=== PATIENT | male | born 1960 | race Caucasian/White ===

== ENCOUNTER 2017-11-18 12:26 | Outpatient (CLI) | payer BC ==
--- NOTE | 2017-11-18 13:56 | RAD ---
8 VIEWS CERVICAL SPINE: Date: 11/18/17 INDICATION: Spondylosis. COMPARISON: None. 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 There is an ACDF spanning C5 through T1 with a large fibular strut graft spanning the inferior aspect of C5 to the sharp perior aspect of T1. ACDF projects in the expected position. Neural foramina appear patent. Lateral m asses are symmetric. Lung apices are clear. There is mild disc degenerative disease at C3-4 and C4-5. Prevertebral soft tissues appear within normal limits. No definite abnormal translational motion is noted. IMPRESSION: 1. Postop cervical spine. No abnormal translational motion demonstrates. 2. Prominent degenerative change at the anterior C1 and C2 articulation. POS: [facility]
== END 2017-11-18 12:27 | disposition home or self-care (01) ==
LOC: RAD 12:26
PROVIDERS: ATTEND Anesthesiology Pain Medicine
DX: M47.892 Other spondylosis, cervical region (principal); Z98.890 Other specified postprocedural states
CPT/HCPCS: 72052

== ENCOUNTER 2018-06-25 08:29 | Outpatient (CLI) | payer BC ==
--- NOTE | 2018-06-25 10:01 | MRI ---
[facility] lumbar spine noncontrast: HISTORY: Lumbar radicular pain COMPARISON: 12/21/2010 FINDINGS: Appropriate T1 marrow signal intensity of the lumbar vertebra. Lumbar spine vertebral body height is maintained. No fracture. No significant STIR hyperintensity to suggest vertebral body edema or ligame ntous injury No paraspinal masses. Symmetric signal intensity of the paraspinal musculature. Left parapelvic cysts . Symmetric enhancement kidneys Conus medullaris terminates at the inferior aspect of L1 T12-L1:Adequate disc hydration. No significant central canal stenosis or neural foraminal narrowing L1-2:Adequate disc hydration. No significant central canal stenosis or neural foraminal narrowing L2-3:Adequate disc hydration. No significant central canal stenosis or foraminal narrowing L3-4:Adequate disc hydration. No significant central canal stenosis or foraminal narrowing L4-5:Adequate disc hydration. No significant spinal canal stenosis or foraminal narrowing L5-S1:Adequate disc hydration. No significant central canal stenosis or foraminal narrowing IMPRESSION: Limited evaluation due to motion degradation. Nevertheless, no significant central canal stenosis or neural foraminal narrowing
== END 2018-06-25 08:30 | disposition home or self-care (01) ==
LOC: BICMRI 08:29
PROVIDERS: ATTEND Nurse Practitioner Family
DX: M54.16 Radiculopathy, lumbar region (principal)
CPT/HCPCS: 72148

== ENCOUNTER 2020-06-15 20:06 | Observation (INO) | payer BC ==
[2020-06-15 21:23] LABS: #Basophils 0.1 thou/uL (0.0-0.2); #Eosinphils 0.4 thou/uL (0.0-0.7); #Lymphocytes 2.8 thou/uL (1.20-3.40); #Monocytes 1.5 thou/uL (0.11-0.59); #Neutrophils 6.7 thou/uL (1.40-6.50); %Basophils 0.9 % (0.0-1.0); %Eosinophils 3.8 % (0.0-10.0); %Lymphocytes 24.2 % (21.0-51.0); %Monocytes 12.8 % (0.0-10.0); %Neutrophils 58.3 % (42.0-75.0); Hemoglobin 13.5 g/dL (14.0-18.0); Mean Corpuscular HGB CONC 32.5 g/dL (32.0-36.0); Mean Corpuscular Hemoglobin 30.6 pg (27.0-31.0); Mean Platelet Volume 8.1 fL (7.4-10.4); Platelet Count 330 thou/uL (130-400); RBC Distribution Width 12.6 % (11.5-14.5); Red Blood Cell (RBC) Count 4.43 mill/uL (4.70-6.10); White Blood Cell (WBC) Count 11.5 thou/uL (4.8-10.8)
[2020-06-15 21:45] LABS: ALT (SGPT) 15 U/L (8-55); AST (SGOT) 16 U/L (5-34); Albumin 4.2 g/dL (3.5-5.0); Alkaline Phosphatase 55 U/L (40-110); Anion Gap 13 mmol/L (10-20); BUN (Urea Nitrogen) 13 mg/dL (8.4-25.7); Bilirubin, Total 0.3 mg/dL (0.2-1.2); Calc. Creatinine Clearance 0 mL/min (70-130); Calcium 8.7 mg/dL (7.8-10.44); Carbon Dioxide 25 mmol/L (22-29); Chloride 105 mmol/L (98-107); Glucose 129 mg/dL (70-105); Potassium 4.1 mmol/L (3.5-5.1); Protein, Total 7.2 g/dL (6.0-8.3); Sodium 139 mmol/L (136-145)
[2020-06-15] MEDS ORDERED: Nitroglycerin 2% Ointment 1 INCH/1 GM Packet ONE (22:09)
[2020-06-15] MEDS ORDERED: Aspirin Chewable 81 MG TAB ONE (22:09)
[2020-06-15] MEDS ORDERED: Morphine 4 MG/ML VIAL ONE (22:59)
[2020-06-16] MEDS ORDERED: Acetaminophen 325 MG TAB PO PRN (00:34)
[2020-06-16] MEDS ORDERED: Ondansetron PF 4 MG/2 ML Vial IVP PRN (00:34)
[2020-06-16] MEDS ORDERED: Morphine 4 MG/ML VIAL SLOW IVP PRN (00:40)
[2020-06-16 01:24] VITALS: BMI 30.7
[2020-06-16 01:41] LABS: Troponin I Less than 0.010 ng/mL (< 0.028)
[2020-06-16 05:17] LABS: #Basophils 0.1 thou/uL (0.0-0.2); #Eosinphils 0.5 thou/uL (0.0-0.7); #Lymphocytes 2.9 thou/uL (1.20-3.40); #Monocytes 1.4 thou/uL (0.11-0.59); #Neutrophils 5.8 thou/uL (1.40-6.50); %Basophils 0.8 % (0.0-1.0); %Eosinophils 4.6 % (0.0-10.0); %Lymphocytes 27.2 % (21.0-51.0); %Monocytes 13.3 % (0.0-10.0); %Neutrophils 54.1 % (42.0-75.0); Hemoglobin 12.8 g/dL (14.0-18.0); Mean Corpuscular HGB CONC 33.8 g/dL (32.0-36.0); Mean Corpuscular Hemoglobin 31.7 pg (27.0-31.0); Mean Corpuscular Volume 93.8 fL (78.0-98.0); Mean Platelet Volume 8.4 fL (7.4-10.4); Platelet Count 305 thou/uL (130-400); RBC Distribution Width 12.6 % (11.5-14.5); Red Blood Cell (RBC) Count 4.04 mill/uL (4.70-6.10); White Blood Cell (WBC) Count 10.7 thou/uL (4.8-10.8)
[2020-06-16 05:32] LABS: Troponin I Less than 0.010 ng/mL (< 0.028)
[2020-06-16 05:39] LABS: Hemoglobin A1c 6.7 % (4.0-6.0)
[2020-06-16 06:40] LABS: Anion Gap 14 mmol/L (10-20); BUN (Urea Nitrogen) 10 mg/dL (8.4-25.7); Calc. Creatinine Clearance 140 mL/min (70-130); Calcium 8.2 mg/dL (7.8-10.44); Carbon Dioxide 25 mmol/L (22-29); Chloride 105 mmol/L (98-107); Glucose 121 mg/dL (70-105); Potassium 3.8 mmol/L (3.5-5.1); Sodium 140 mmol/L (136-145)
[2020-06-16 09:06] LABS: SARS-CoV-2 PCR by NAA Not Detected (NotDetected)
[2020-06-16] MEDS ORDERED: Venlafaxine HCl XR 150 MG CAP PO SCH ×2 (09:45→21:00)
[2020-06-16] MEDS ORDERED: ALPRAZolam 1 MG TAB PO PRN (09:45)
[2020-06-16 13:40] VITALS: BP 133/66; TEMP 97.8
[2020-06-16] MEDS ORDERED: ADENOSINE 60 MG/20 ML VIAL ONE (14:51)
[2020-06-16] MEDS ORDERED: Multivit, Therapeutic 1 TAB PO SCH (21:00)
[2020-06-16] MEDS ORDERED: Escitalopram Oxalate 20 mg Tablet PO SCH (21:00)
[2020-06-16] MEDS ORDERED: Melatonin 3 MG TAB PO SCH (21:00)
[2020-06-16] MEDS ORDERED: tiZANidine HCl 4 MG TAB PO SCH (21:00)
[2020-06-16] MEDS ORDERED: Gabapentin 300 MG CAP PO SCH (21:00)
[2020-06-16] MEDS ORDERED: Cholecalciferol 1,000 UNITS (25 MCG) TAB PO SCH (21:00)
[2020-06-17] MEDS ORDERED: Aspirin 81 mg Enteric Coated Tablet PO SCH (09:00)
== END 2020-06-16 15:00 | disposition home or self-care (01) ==
LOC: ERS 20:06 → 2NO 22:49
PROVIDERS: ADMIT Internal Medicine; ATTEND Internal Medicine
DX: R07.89 Other chest pain (principal); D72.829 Elevated white blood cell count, unspecified; M45.9 Ankylosing spondylitis of unspecified sites in spine; K21.9 Gastro-esophageal reflux disease without esophagitis; E11.9 Type 2 diabetes mellitus without complications; D53.9 Nutritional anemia, unspecified; E66.9 Obesity, unspecified; Z68.30 Body mass index [BMI] 30.0-30.9, adult; Z87.891 Personal history of nicotine dependence; Z79.82 Long term (current) use of aspirin; Z79.899 Other long term (current) drug therapy; Z88.0 Allergy status to penicillin; Z88.1 Allergy status to other antibiotic agents; Z88.2 Allergy status to sulfonamides; Z98.84 Bariatric surgery status; Z20.822 Contact with and (suspected) exposure to COVID-19
CPT/HCPCS: 36415; 78452; 80048; 80053; 83036; 84484; 85025; 86140; 87635; 93005; 93017; 94760; 96374; A9500; G0378; J0153; J2270; U0003; U0005

== ENCOUNTER 2023-08-04 11:27 | Outpatient (CLI) | payer BC | END 2023-08-04 11:28 | disposition home or self-care (01) | LOC: BICMRI 11:27 | PROVIDERS: ATTEND Orthopaedic Surgery | DX: M23.91 Unspecified internal derangement of right knee (principal); S80.01XA Contusion of right knee, initial encounter ==

== ENCOUNTER 2023-09-26 15:15 | Outpatient (CLI) | payer BC | END 2023-09-26 15:16 | disposition home or self-care (01) | LOC: BICMAMMO 15:15 | PROVIDERS: ATTEND Internal Medicine Rheumatology | DX: M81.0 Age-related osteoporosis without current pathological fracture (principal); M85.851 Other specified disorders of bone density and structure, right thigh | CPT/HCPCS: 77080 ==

== ENCOUNTER 2024-10-28 13:23 | Outpatient (CLI) | payer BC | END 2024-10-28 13:24 | disposition home or self-care (01) | LOC: BICCT 13:23 | PROVIDERS: ATTEND Family Medicine | DX: R63.4 Abnormal weight loss (principal); R93.89 Abnormal findings on diagnostic imaging of other specified body structures; R91.8 Other nonspecific abnormal finding of lung field; J98.4 Other disorders of lung | CPT/HCPCS: 71250 ==

== ENCOUNTER 2024-11-03 13:32 | Outpatient (CLI) | payer BC ==
[2024-11-03 14:15] LABS: Estimated GFR - POC 104.0
[2024-11-03] MEDS ORDERED: Iopamidol 370 76% 100 ML VIAL ONE (15:30)
== END 2024-11-03 13:33 | disposition home or self-care (01) ==
LOC: CT 13:32
PROVIDERS: ATTEND Family Medicine
DX: K59.09 Other constipation (principal); R63.4 Abnormal weight loss; R91.8 Other nonspecific abnormal finding of lung field
CPT/HCPCS: 36415; 74177; 82565; Q9967

== ENCOUNTER 2025-03-01 14:33 | Outpatient (CLI) | payer BC | END 2025-03-01 14:34 | disposition home or self-care (01) | LOC: BICCT 14:33 | PROVIDERS: ATTEND Internal Medicine Critical Care Medicine | DX: R91.1 Solitary pulmonary nodule (principal); J98.4 Other disorders of lung | CPT/HCPCS: 71250 ==

== ENCOUNTER 2025-03-07 11:17 | Emergency (ER) | payer BC | END 2025-03-07 15:02 | disposition home or self-care (01) | LOC: ERS 11:17 | DX: S00.01XA Abrasion of scalp, initial encounter (principal); M54.2 Cervicalgia; W18.30XA Fall on same level, unspecified, initial encounter | CPT/HCPCS: 70450; 72125 ==